=== PATIENT | female | born 1965 | race Caucasian/White ===

== ENCOUNTER 2018-08-09 08:05 | Emergency (ER) | payer OTHER ==
[~2018-08-09] VITALS: Ht 167.6 cm; Wt 85.7 kg
[2018-08-09 09:35] LABS: BACTERIA,URINE FEW /HPF; BILIRUBIN,URINE NEGATIVE (NEGATIVE); CLARITY,URINE CLEAR (CLEAR); COLOR,URINE YELLOW (YELLOW); EPITHELIAL CELLS,URINE FEW /LPF; KETONES,URINE NEGATIVE (NEGATIVE); LEUKOCYTE ESTERASE ,URINE NEGATIVE (NEGATIVE); NITRITE,URINE NEGATIVE (NEGATIVE); PROTEIN,URINE DIPSTICK NEGATIVE (NEGATIVE); URINE UROBILINOGEN 0.2 mg/dL (0.2 - 1)
[2018-08-09 09:36] LABS: PREGNANCY TEST, URINE NEGATIVE (NEGATIVE)
[2018-08-09] MEDS ORDERED: KETOROLAC TROMETHAMINE 60 MG/2 ML VIAL IM NR (11:15)
[2018-08-09] MEDS ORDERED: DIAZEPAM 5 MG TAB PO NR (11:30)
--- NOTE | 2018-08-09 14:58 | Diagnostic Imaging Report ---
Patient name: Gretel West : 67 CT LUMBAR SPINE WO CONTRAST HISTORY: Lower back pain, right hip pain COMPARISON: None TECHNIQUE: Axial CT images of the lumbar spine were obtained without contrast. Coronal and sagittal reconstructions obtained from the axial data. One or more of the following dose reduction techniques were used: Automated exposure control, adjustment of the mA and/or kV according to patient size, and/or utilization of iterative reconstruction technique. DISCUSSION: There are 5 nonrib-bearing lumbar vertebral bodies. Lumbar lordosis is preserved. There is no significant scoliosis or subluxation. No fracture, compression deformity, or destructive osseous lesion is seen. No gross spinal canal mass is seen. The paravertebral and paraspinal soft tissues are unremarkable. The disc spaces are preserved with minimal spondylotic changes. There are mild degenerative changes in the bilateral sacroiliac joints. L1-L2: No gross canal or foraminal stenosis. L2-L3: No gross canal or foraminal stenosis. L3-L4: No gross canal or foraminal stenosis. L4-L5: Mild bilateral foraminal stenoses due to disc bulge and facet arthrosis. No gross canal stenosis. Facet arthrosis is mild to moderate, left greater than right. L5-S1: No gross canal or foraminal stenosis. Facet arthrosis is mild to moderate. Mild left basilar atelectasis is partially visualized in the lungs. Mild aortoiliac calcified atherosclerosis is present. IMPRESSION: 1. No acute osseous abnormalities. 2. Minimal spondylosis without gross canal stenosis. 3. Mild bilateral degenerative foraminal stenoses at L4-L5. 4. Mild to moderate bilateral lower lumbar facet arthrosis. Mild bilateral sacroiliac degenerative changes. Signed by: Dr. Abner Jaimes M.D. on 08/09/2018 2:54 PM
--- NOTE | 2018-08-09 19:17 | Diagnostic Imaging Report ---
[id number] EXAM: CT right hip WITHOUT contrast INDICATION: Lower back and right hip pain. COMPARISON: None. TECHNIQUE: Right hip was scanned utilizing a multidetector helical scanner without administration of IV contrast. Coronal and sagittal reformations were obtained. Routine protocol was performed. IV CONTRAST: None ORAL CONTRAST: Water COMPLICATIONS: None RADIATION DOSE: Total DLP: 302.56 mGy*cm Estimated effective dose: (DLP x 0.015 x size factor) mSv CTDIvol has been reviewed. It is below the limits set by the Radiation Protocol Committee (RPC). FINDINGS: Right femoral head and acetabular sclerotic foci, likely bone islands. No evidence of acute fracture or dislocation of the right hip. Subtle lucent line in right inferior pubic ramus (series 4, image 41) with mild adjacent fat stranding, concerning for nondisplaced fracture. IMPRESSION: 1. No acute fracture or dislocation of the right hip. Subtle lucent line in right inferior pubic ramus (series 4, image 41) with mild adjacent fat stranding, concerning for nondisplaced fracture. Signed by: Dr. Aries Bledsoe MD on 08/09/2018 7:14 PM
== END 2018-08-09 13:11 | disposition home or self-care (01) ==
LOC: ER 08:05
DX: M54.5 Low back pain (principal); S39.012A Strain of muscle, fascia and tendon of lower back, initial encounter; M46.1 Sacroiliitis, not elsewhere classified; M47.816 Spondylosis without myelopathy or radiculopathy, lumbar region; I10 Essential (primary) hypertension; G89.29 Other chronic pain
CPT/HCPCS: 72131; 73700; 81001; 81025; 99284; J1885

== ENCOUNTER → 2019-05-14 | Day surgery (SDC) | payer OTHER ==
[~2019-05-14] MED LIST: BACITRACIN 50,000 UNIT VIAL ONE; BUPIVACAINE HCL 0.5% INJ 30 ML VIAL INJ ONE; CEFAZOLIN SOD 1 GM/NS 50ML 50 ML IV ONE; DEXAMETHASONE SOD PHOS INJ 4 MG/ML VIAL ONE; FENTANYL CITRATE/PF 100MCG/2 ML INJ ONE; KETOROLAC TROMETHAMINE 30 MG/ML VIAL ONE; LIDOCAINE HCL 2% LOCAL INJ 5 ML SDV VIAL INJ ONE; METOPROLOL SUCC25 MG PO; MIDAZOLAM HCL 2 MG/2 ML VIAL ONE; NEXIUM40 MG PO; ONDANSETRON HCL INJ 2MG/ML 2ML 2 MG/ML VIAL ONE; PROPOFOL IV EMULSION 10 MG/ML 20 ML VIAL ONE; SEVOFLURANE INHAL SOLN 250 ML PEN BTL ONE
--- OUTSIDE RECORDS SUMMARY | 2019-05-14 05:26 | XMS REPORT ---
Author Author [facility] Address Unknown Phone Unavailable Care Team Providers Care [employer] Name Role Phone Calvin ALATORRE Unavailable Unavailable Problems This patient has no known problems. Allergies, Adverse Reactions, Alerts This patient has no known allergies or adverse reactions. Medications This patient has no known medications. Results Test Description Test Time Test Comments Text Results Atomic Results Result Comments CT HIP RIGHT WO 2018-08-09 17:49:00 [place] [address] Patient Name: GRETEL FERNANDEZ MR #: [id number] : 1965 Age/Sex: 53/F Req #: [id number] Adm Physician: Ordered by: ADELINE CHRISTOPHER MD Report #: [id number] Location: ER Room/Bed: Procedure: [id number] CT/CT HIP RIGHT WO Exam Date: 08/09/18 Exam Time: 926 REPORT STATUS: Signed [id number] EXAM: CT right hip WITHOUT contrast IN DICATION: Lower back and right hip pain. COMPARISON: None. TECHNIQUE: Right hip was scanned utilizing a multidetector helical scanner without administration of IV contrast. Coronal and sagittal reformations were obtained. Routine protocol was performed. IV CONTRAST: None ORAL CONTRAST: Water COMPLICATIONS: None RADIATION DOSE: Total DLP: 302.56 mGy*cm Estimated effective dose: (DLP x 0.015 x size factor) mSv CTDIvol has been reviewed. It is below the limits set by the Radiation Protocol Committee (RPC). FINDINGS: Right femoral head and acetabular sclerotic foci, likely bone islands. No evidence of acute fracture or dislocation of the right hip. Subtle lucent line in right inferior pubic ramus (series 4, image 41) with mild adjacent fat stranding, concerning for nondisplaced fracture. IMPRESSION: 1. No acute fracture or dislocation of the right hip. Subtle lucent line in right inferior pubic ramus (series 4, image 41) with mild adjacent fat stranding, concerning for nondisplaced fracture. Signed by: Dr. Aries Werner MD on 08/09/2018 7:14 PM Dictated By: ARIES WERNER MD 13 Transcribed By: OZ on 08/09/181913 COPY TO: ADELINE CHRISTOPHER MD CT LUMBAR SPINE WO 2018-08-09 13:59:00 [place] [address] Patient Name: GRETEL FERNANDEZ MR #: [id number] : 1965 Age/Sex: 53/F Req #: [id number] Adm Physician: Ordered by: ADELINE CHRISTOPHER MD Report #: [id number] Location: ER Room/Bed: Procedure: [id number] CT/CT LUMBAR SPINE WO Exam Date: 08/09/18 Exam Time: 926 REPORT STATUS: Signed Patient name: Gretel Fernandez : 67 CT LUMBAR SPINE WO CONTRAST HISTORY: Lower back pain, right hip pain COMPARISON: None TECHNIQUE: Axial CT images of the lumbar spine were obtained without contrast. Coronal and sagittal reconstructions obtained from the axial data. One or more of the following dose reduction techniques were used: Automated exposure control, adjustment of the mA and/or kV according to patient size, and/or utilization of iterative reconstruction technique. DISCUSSION: There are 5 nonrib-bearing lumbar vertebral bodies. Lumbar lordosis is preserved. There is no significant scoliosis or subluxation. No fracture, compression deformity, or destructive osseous lesion is seen. No gross spinal canal mass is seen. The paravertebral and paraspinal soft tissues are unremarkable. The disc spaces are preserved with minimal spondylotic changes. There are mild degenerative changes in the bilateral sacroiliac joints. L1-L2: No gross canal or fo raminal stenosis. L2-L3: No gross canal or foraminal stenosis. L3-L4: No gross canal or foraminal stenosis. L4-L5: Mild bilateral foraminal stenoses due to disc bulge and facet arthrosis. No gross canal stenosis. Facet arthrosis is mild to moderate, left greater than right. L5-S1: No gross canal or foraminal stenosis. Facet arthrosis is mild to moderate. Mild left basilar atelectasis is partially visualized in the lungs. Mild aortoiliac calcified atherosclerosis is present. IMPRESSION: 1. No acute osseous abnormalities. 2. Minimal spondylosis without gross canal stenosis. 3. Mild bilateral degenerative foraminal stenoses at L4-L5. 4. Mild to moderate bilateral lower lumbar facet arthrosis. Mild bilateral sacroiliac degenerative changes. Signed by: Dr. Abner Jaimes M.D. on 08/09/2018 2:54 PM Dictated By: ABNER JAIMES MD [id number] Transcribed By: OZ on 08/09/18 0883 COPY TO: ADELINE CHRISTOPHER MD
[2019-05-14 08:20] VITALS: BP 116/57
--- NOTE | 2019-05-14 11:38 | Operative Report ---
DATE OF PROCEDURE: 05/14/2019 SURGEON: Greg Mcgowan DPM PREOPERATIVE DIAGNOSIS: Right hallux rigidus. POSTOPERATIVE DIAGNOSIS: Right hallux rigidus. PLANNED PROCEDURE: Right Harper bunionectomy with implant. SURGEON: Taylor Rizo DPM (Charley) VENEER JOINTER OPERATOR: Greg Mcgowan DPM ANESTHESIA: General with a postoperative block consisting of 15 mL of 0.5% Marcaine plain. HEMOSTASIS: Pneumatic thigh tourniquet set at 350 mmHg for a total time of approximately 30 minutes. MATERIALS: One size 2 [id number] toe reference first MPJ implant, 2-0 Vicryl, 3-0 Vicryl, 4-0 Prolene. ESTIMATED BLOOD LOSS: Less than 10 mL. PATHOLOGY: None. PROCEDURE NOTE: The patient was seen in the preoperative waiting room where the correct procedure and site was identified. The patient was brought into the operating room and placed on the operating table in the supine position. General anesthesia was initiated. At this time, a well-padded pneumatic tourniquet was placed about the patient's right thigh. The right foot, ankle, and leg was then scrubbed, prepped, and draped in the usual aseptic manner. The right foot, ankle, and leg was exsanguinated with an Esmarch bandage. The pneumatic thigh tourniquet was inflated to 350 mmHg for a total time of approximately 30 minutes. Attention was directed to the dorsal medial aspect of the patient's right first metatarsophalangeal joint, where a large bony prominence is noted with a very limited motion of the first MPJ. The decision was made to proceed with the first MPJ implant. Utilizing a #15 blade, a 5 cm linear incision made directly over the first metatarsophalangeal joint medial to the extensor hallucis longus tendon. The incision was carried through subcutaneous tissue them from deep or underlying structures. All vital neurovascular structures were identified, retracted medially and laterally and all bleeders were cauterized or ligated as deemed necessary. Next, a linear capsulotomy weave was performed at the level of the first metatarsophalangeal joint to allow for good visualization of the joint. There was noted to be 2 large osteophytes noted dorsally to the proximal phalanx. There was approximately 80% denudation of articular cartilage on the distal metatarsal head and 50% of the proximal phalanx. Utilizing sagittal saw, the medial eminence and dorsal eminence and lateral eminence were resected and passed off to the back table. Next, the distal articular cartilage was removed with an osteotomy and a sagittal saw per manufacture protocol. The base of the proximal phalanx was also resected and passed off to the back table. Utilizing a sizer, it was determined a size 2 implant was most appropriate. The wound was then copiously irrigated with sterile saline. Next, per manufacture protocol, a guidewire was placed into the first metatarsal head, reamed, followed by the same procedure in the proximal phalanx. The grommets were placed per manufacture protocol and followed by the implant. This was confirmed via intraoperative fluoroscopy to be in the correct location. The wound was again copiously irrigated with sterile saline. Capsule and deep tissue were reapproximated with 2-0 Vicryl, subcutaneous tissue with 3-0 Vicryl, and the skin was closed using a running interlocking stitch of 4-0 Prolene. The patient tolerated the procedure and anesthesia well. The patient was transferred to the postoperative recovery room with vital signs stable and vascular status intact. The patient was monitored there for a short period time before being sent home with the following written and oral instructions. 1. Keep the dressing clean, dry, intact. 2. The patient is to remain partial weightbearing in a postop shoe to avoid excessive ambulation until being seen in the office. 3. The patient was given the office number and should contact us if any problems arise. AAKASH Bell/ALE /[phone]
== END | disposition home or self-care (01) ==
LOC: OR 05:22
PROVIDERS: ATTEND Podiatrist Foot & Ankle Surgery
DX: M20.21 Hallux rigidus, right foot (principal); I10 Essential (primary) hypertension; K21.9 Gastro-esophageal reflux disease without esophagitis; Z01.810 Encounter for preprocedural cardiovascular examination; Z87.891 Personal history of nicotine dependence
CPT/HCPCS: 28291; 93005; J0690; J1100; J1885; J2001; J2250; J2405; J2704; J3010; L8642